=== PATIENT | male | born 1965 | race Hispanic/Latino ===

== ENCOUNTER 2023-10-19 13:03 | Emergency (ER) | payer OTHER ==
[~2023-10-19] VITALS: Ht 182.9 cm; Wt 116.7 kg
[2023-10-19] MEDS: ACETAMINOPHEN 325 MG TAB PO ONE (13:36)
[2023-10-19] MEDS: LACTATED RINGER'S 1,000 ML INJ ONE (13:36)
[2023-10-19 14:19] VITALS: PULSE 66; RESP 18; TEMP 98.3; O2SAT 99
== END 2023-10-19 14:29 | disposition home or self-care (01) ==
LOC: FSED 13:07
DX: T67.2XXA Heat cramp, initial encounter (principal); E11.65 Type 2 diabetes mellitus with hyperglycemia; Z59.6 Low income
CPT/HCPCS: 80048; 80076; 81003; 85025; 99284; J7121